=== PATIENT | female | born 1985 | race Hispanic/Latino ===

== ENCOUNTER 2017-01-31 10:49 | Emergency (ER) | payer OTHER | END 2017-01-31 11:33 | disposition home or self-care (01) | LOC: ERS 10:49 | DX: B34.9 Viral infection, unspecified (principal); F32.9 Major depressive disorder, single episode, unspecified | CPT/HCPCS: 87081; 87430; 99283 ==

== ENCOUNTER 2017-03-30 10:47 | Outpatient (CLI) | payer OTHER ==
--- NOTE | 2017-03-30 11:53 | ULT ---
RIGHT UPPER QUADRANT ULTRASOUND: History: Elevated LFTs. FINDINGS: The liver demonstrates increased echogenicity consistent with fatty infiltration. No focal mass or in trahepatic ductal dilatation is seen. No gallstones, gallbladder wall thickening or pericholecystic f luid is identified. The common duct measures 4 mm in diameter. The right kidney is normal. The pancre as is not well visualized due to overlying bowel gas. No free fluid is seen in the large or small bow el. IMPRESSION: 1. Fatty liver. 2. No evidence of cholelithiasis. POS: [facility]
== END 2017-03-30 10:48 | disposition home or self-care (01) ==
LOC: ULT 10:47
PROVIDERS: ATTEND Family Medicine
DX: R79.89 Other specified abnormal findings of blood chemistry (principal); K76.0 Fatty (change of) liver, not elsewhere classified
CPT/HCPCS: 76705

== ENCOUNTER 2017-07-25 16:00 | Inpatient (IN) | payer OTHER ==
--- NOTE | 2017-07-26 00:13 | HP ---
DATE OF ADMISSION: 07/26/2017 positive high risk HPV, status post LEEP, desiring definitive surgical management with dysmenor raza and menorrhagia, laparoscopic hysterectomy with bilateral salpingectomy. HISTORY OF PRESENT ILLNESS: Ms. Kuhn is a 31-year-old 5, para 4, AB 1, x4, who has a history of dysplasia. She was noted to have low grade AN on a Pap, who underwent a LEEP at the [facility] which showed extensive endocervical gland involving severe dysplasia. 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 She was referred for further evaluation. On discussing this with the patient, the need for persistent s urveillance because of the HPV was discussed with the patient. The patient also discussed her dysmen orrhea and menorrhagia. She does not desire future childbearing. She desires more definitive manage ment of her dysplasia. OB AND REHABILITATION LIAISON HISTORY: As noted. PAST MEDICAL HISTORY: Previous discharge of fatty liver, but with normal LFTs recently. PAST SURGICAL HISTORY: LEEP. ALLERGIES: None. MEDICATIONS: None. SOCIAL HISTORY: Denies tobacco or alcohol use currently. The patient is a former smoker. FAMILY HISTORY: Noncontributory. REVIEW OF SYSTEMS: Noncontributory. PHYSICAL EXAMINATION: GENERAL: Female. VITAL SIGNS: Height 5 feet 2 inches, weight 209, BMI 38, blood pressure 118/76. HEENT: Within normal limits. LUNGS: Clear to auscultation bilaterally. HEART: Regular rate and rhythm. BREASTS: Without masses bilaterally. ABDOMEN: Soft, nontender, no rebound or guarding. PELVIC: Vulva without lesions. Vagina without discharge. Cervix is parous, is well healed, status post LEEP in April. Uterus is anteverted, 6-8 week size. Adnexa, no masses bilaterally. EXTREMITIES: Without clubbing, cyanosis or edema. 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 PLAN: Laparoscopic hysterectomy with da Ivana and bilateral salpingectomy. We will administer appro priate antibiotic and DVT prophylaxis.
[2017-07-26] MEDS ORDERED: CEFAZOLIN/Water 2 GM/20 ML SYRINGE ONE (08:35)
[2017-07-26] MEDS ORDERED: CEFAZOLIN 1 GM VIAL ONE (08:35)
[2017-07-26] MEDS ORDERED: Midazolam HCl 2 mg/2 ml Vial ONE ×2 (09:07→09:49)
[2017-07-26] MEDS ORDERED: Bupivacaine HCl 0.5%/Epinephrine 1:200,000/PF 30 ml Vial ONE (09:42)
[2017-07-26] MEDS ORDERED: Fentanyl 250 MCG/5 ML VIAL ONE (09:49)
[2017-07-26] MEDS ORDERED: SUGAMMADEX SODIUM 200 MG/2 ML VIAL ONE (09:49)
[2017-07-26] MEDS ORDERED: Ropivacaine HCl/PF 750 ML in Premix Bag 1 BAG NERVE BLCK SCH (10:00)
[2017-07-26] MEDS ORDERED: Fentanyl 100 MCG/2 ML VIAL ONE (11:50)
--- NOTE | 2017-07-26 12:01 | OP ---
DATE OF PROCEDURE: 07/26/2017 PREOPERATIVE DIAGNOSES: Recurrent dysplasia with persistent positive for high risk HPV with dysmenor raza and menorrhagia. POSTOPERATIVE DIAGNOSES: Recurrent dysplasia with persistent positive for high risk HPV with dysmeno rrhea and menorrhagia. PROCEDURE: Total laparoscopic hysterectomy, bilateral salpingectomy, da Ivana robot. SURGEON: Hermelindo Hayes M.D. MOTION PICTURE COMMENTATOR: Coretta Layton D.O. ANESTHESIA: Will ____, JOB SUPERINTENDENT, General endotracheal. ESTIMATED BLOOD LOSS: 100 mL. COMPLICATIONS: None. DRAINS: Carolina to gravity. SPECIMENS REMOVED: Uterus and bilateral tubes. OPERATIVE FINDINGS: 1. Approximately 6-week sized uterus. 2. Normal appearing tubes and ovaries bilaterally. 3. Hemostasis with clear urine. Counts correct at the end of the procedure. DISPOSITION: Recovery room in good condition. DESCRIPTION OF OPERATIVE PROCEDURE: After obtaining proper informed consent, the patient was taken t o the operating room where general endotracheal anesthesia achieved. The abdomen was prepped and lindsay ped in dorsal lithotomy position in Hung stirrups. Weighted speculum placed in vagina, cervix ident ified, grasped with tooth tenaculum, sounded to 8 cm obturator, 4 cm vaginal clinical reimbursement specialist, EDUARDO manipul ator was placed without difficulty. The Carolina catheter placed with clear urine. Reliability Manager changed hi s gloves and turned his attention to the abdominal portion of procedure. Five mL of Marcaine injecte d at the superior aspect of the umbilicus and a 12 mm skin incision made, ____ placed in the abdomina l cavity. Insufflation carried out with carbon dioxide to a max pressure of 15, volume approximately 3.5 liters. A 12 mm trocar was then placed. Confirmed entry into the peritoneal cavity to underlyi ng viscera. The patient placed in steep Trendelenburg and right and left lateral da Ivana ob gyn physician assistant ports were placed as well as a human ob gyn physician assistant port, a right upper quadrant 11 mm. The da Ivana robo t was docked with a 4-0 Monocryl and Dermabond. The da Ivana robot was docked and a monopolar scisso r was placed in the right hand and bipolar forceps in the left. Distal left fallopian tube was eleva celsa, mesosalpinx coagulated and transected up to the level of the uterus where it was amputated and r emoved out the ob gyn physician assistant port. The utero-ovarian ligament broad and round were then coagulated and t ransected, carried down to the level of the internal cervical os. At this level the peritoneum poste riorly was opened up and identify the ureter and letting it fall lateral, anterior the vesicouterine peritoneum was incised sharply and dissected off the lower segment, cervix and upper vagina. This wa s carried all the way over to the patient's right. Skeletonization of the uterine vessels carried ou t. These were coagulated and transected. Attention was turned to the right where the identical proc edure was carried out including removing the fallopian tube, coagulating the mesosalpinx, utero-ovar raciel, broad, round, and down to level of internal cervical os. Again, the peritoneum was opened up an terior and posterior let the ureter fall away incising the peritoneum of the bladder upon the lower u terine segment and cervix. The bladder was noted to be well dissected off the upper vagina. Skeleto nization of the uterine vessels on the patient's right carried out. These were coagulated and transe cted as well. Anteriorly, the vagina was entered at 12 o'clock and extended from 12 to 3 and from 12 to 9 and from 6 to 3 and 6 to 9 amputating the specimen and pulling it into the vagina. Monopolar s cissors were changed out with a BonzerDarg needle team driver. The vaginal cuff was elevated. Suction irrigat ion was carried out to identify small areas of bleeding along it which were rendered hemostatic using the bipolar fenestrated cautery. The vagina was closed using a running continuous 2-0 PDS suture lo ck, the bladder was backfilled to assure that it was away from the operative field. It was not be aw ay from all suture. The cuff was closed in a running continuous manner from right to left and then b ack to right. Further suction irrigation was carried out which revealed good hemostasis. FloSeal wa s applied across the surgical fossa in the pelvis and then the On-Q pump placed into the pelvic fossa for postoperative analgesia. The da Ivana instruments were removed, the da Ivana was undocked. Abd omen desufflated of carbon dioxide. The patient leveled, trocars removed x4. Deep tissue at the umb ilicus reapproximated using 0 Vicryl on a UR-5 needle. Skin reapproximated x4 using 4-0 Monocryl and Dermabond. Specimen removed from the vagina, vagina inspected and noted be dry and intact. The pat ient awaken and taken to recovery room in good condition.
[2017-07-26] MEDS ORDERED: Ondansetron HCl/PF 4 MG/2 ML Vial IVP PRN ×2 (13:08→13:32)
[2017-07-26] MEDS ORDERED: Morphine 4 MG/ML Carpuject SLOW IVP PRN ×2 (13:08→13:32)
[2017-07-26] MEDS ORDERED: Promethazine HCl 25 MG/ML VIAL IM PRN ×2 (13:08→13:32)
[2017-07-26] MEDS ORDERED: Zolpidem Tartrate 5 MG TAB PO PRN (13:08)
[2017-07-26] MEDS ORDERED: Morphine 4 MG/ML VIAL IV PRN ×4 (13:17→15:12)
[2017-07-26] MEDS: Sodium Chloride 0.9% 1,000 ML IV SCH (13:30)
[2017-07-26] MEDS: Acetaminophen 1,000 MG in Premix Bag 1 BAG IVPB SCH (13:30)
[2017-07-26] MEDS ORDERED: Ketorolac Tromethamine 30 MG/ML VIAL IVP SCH (13:32)
[2017-07-26] MEDS ORDERED: Acetaminophen 1,000 MG in Premix Bag 1 BAG IVPB SCH (13:32)
[2017-07-26] MEDS ORDERED: HYDROcodone/Acetaminophen 10/325 mg Tablet PO PRN ×2 (13:32)
[2017-07-26] MEDS ORDERED: Sodium Chloride 0.9% 1,000 ML IV SCH (13:32)
[2017-07-26] MEDS ORDERED: Ondansetron HCl/PF 4 MG/2 ML Vial ONE (13:50)
[2017-07-26] MEDS ORDERED: PROPOFOL 200 MG/20 ML VIAL ONE (13:50)
[2017-07-26] MEDS ORDERED: Ketorolac Tromethamine 30 MG/ML VIAL ONE (13:50)
[2017-07-26] MEDS ORDERED: Lidocaine 1% PF 5 ML VIAL ONE (13:50)
[2017-07-26] MEDS ORDERED: diphenhydrAMINE 50 MG/ML VIAL ONE (15:30)
[2017-07-26] MEDS ORDERED: Morphine 4 MG/ML VIAL ONE (15:30)
[2017-07-26] MEDS: Ketorolac Tromethamine 30 MG/ML VIAL IVP SCH (17:42)
[2017-07-26] MEDS: HYDROcodone/Acetaminophen 10/325 mg Tablet PO PRN (21:26)
[2017-07-26] MEDS: diphenhydrAMINE 50 MG/ML VIAL IVP PRN (21:27)
[2017-07-27] MEDS: Ketorolac Tromethamine 30 MG/ML VIAL IVP SCH ×4 (00:36→11:50)
[2017-07-27] MEDS: diphenhydrAMINE 50 MG/ML VIAL IVP PRN (03:48)
[2017-07-27] MEDS: Sodium Chloride 0.9% 1,000 ML IV SCH ×2 (05:38→05:39)
[2017-07-27] MEDS: Acetaminophen 1,000 MG in Premix Bag 1 BAG IVPB SCH ×5 (05:38→11:50)
[2017-07-27 05:55] LABS: Hemoglobin 10.6 g/dL (12.0-16.0); Mean Corpuscular HGB CONC 31.5 g/dL (32.0-36.0); Mean Corpuscular Hemoglobin 24.4 pg (27.0-31.0); Mean Corpuscular Volume 77.5 fl (81.0-99.0); Mean Platelet Volume 8.6 fL (7.4-10.4); Platelet Count 174 thou/uL (130-400); RBC Distribution Width 16.2 % (11.5-14.5); Red Blood Cell (RBC) Count 4.33 mill/uL (4.20-5.40); White Blood Cell (WBC) Count 6.7 thou/uL (4.8-10.8)
[2017-07-27] MEDS: HYDROcodone/Acetaminophen 10/325 mg Tablet PO PRN ×4 (06:34→13:56)
[2017-07-27] MEDS ORDERED: Hydrochlorothiazide 25 MG TAB PO SCH (09:00)
[2017-07-27] MEDS ORDERED: diphenhydrAMINE 25 MG CAP PO PRN (11:25)
[2017-07-27 12:22] VITALS: BP 123/95; TEMP 98.3
--- NOTE | 2017-07-27 13:43 | DIS ---
DATE OF ADMISSION: 07/26/2017 DATE OF DISCHARGE: 07/27/2017 HOSPITAL COURSE: The patient is resting comfortably. She has mild itching secondary to a reaction t o MORPHINE. Hematocrit is 33.6% this morning with a normal platelet count and white count of 6.7. VITAL SIGNS: Temperature 98.4, pulse 72, respirations 18, blood pressure 125/58. T-max postoperativ aby is 98.4. I's and O's, the patient has voided more than 1200 mL. She is taking p.o. well and rep orts no nausea, vomiting. PHYSICAL EXAMINATION: LUNGS: Clear to auscultation bilaterally. HEART: Regular rate and rhythm. ABDOMEN: Soft and nontender. Trocars dry x4. ON-Q infusing well. Perineum dry. EXTREMITIES: Without clubbing, cyanosis or edema. Pathology pending. IMPRESSION: The patient is doing well status post TLH with a salpingectomy. PLAN: Discharge home. The patient to continue with ON-Q pump and with [place] as prescribed at preope rative visit. Follow up at [facility] [place] in 4 weeks.
== END 2017-07-27 14:13 | disposition home or self-care (01) | DRG 743 ==
LOC: SURG A 07-26 07:55 → 3SE 07-26 13:11
PROVIDERS: ADMIT Obstetrics & Gynecology; ATTEND Obstetrics & Gynecology
PROC: 0UT9FZZ Resection of Uterus, Via Natural or Artificial Opening With Percutaneous Endoscopic Assistance (ICD-10-PCS; principal; 2017-07-26)
PROC: 0UT7FZZ Resection of Bilateral Fallopian Tubes, Via Natural or Artificial Opening With Percutaneous Endoscopic Assistance (ICD-10-PCS; 2017-07-26)
PROC: 8E0W4CZ Robotic Assisted Procedure of Trunk Region, Percutaneous Endoscopic Approach (ICD-10-PCS; 2017-07-26)
DX: N87.9 Dysplasia of cervix uteri, unspecified (principal); N94.6 Dysmenorrhea, unspecified; N92.0 Excessive and frequent menstruation with regular cycle; Z01.812 Encounter for preprocedural laboratory examination
CPT/HCPCS: 36415; 84703; 85027; 86850; 86900; 86901; 88307; J0131; J0670; J0690; J1200; J1885; J2001; J2250; J2270; J2405; J2704; J2795; J3010

== ENCOUNTER 2017-07-25 16:11 | Outpatient (CLI) | payer OTHER ==
[2017-07-25 17:14] LABS: Hemoglobin 11.7 g/dL (12.0-16.0); Mean Corpuscular HGB CONC 32.7 g/dL (32.0-36.0); Mean Corpuscular Hemoglobin 24.9 pg (27.0-31.0); Mean Corpuscular Volume 76.2 fl (81.0-99.0); Mean Platelet Volume 8.2 fL (7.4-10.4); Platelet Count 234 thou/uL (130-400); RBC Distribution Width 16.1 % (11.5-14.5); Red Blood Cell (RBC) Count 4.67 mill/uL (4.20-5.40); White Blood Cell (WBC) Count 7.8 thou/uL (4.8-10.8)
[2017-07-25 17:25] LABS: BHCG - Serum Negative (NEGATIVE); Pregs Control Background? CLEAR/WHITE (CLR/WHITE); Pregs Control Bar Appear? YES (CONTROL BAR)
== END 2017-07-25 16:12 | disposition home or self-care (01) ==
LOC: LABBT 16:11
PROVIDERS: ATTEND Obstetrics & Gynecology
DX: Z01.812 Encounter for preprocedural laboratory examination (principal); N87.9 Dysplasia of cervix uteri, unspecified
CPT/HCPCS: 84703; 85027; 86850; 86900; 86901

== ENCOUNTER 2018-07-10 13:22 | Emergency (ER) | payer OTHER, SELFPAY ==
[2018-07-10] MEDS ORDERED: Proparacaine 0.5% Opth 15 ML BOT ONE (15:18)
[2018-07-10] MEDS ORDERED: Fluorescein Opthalmic Strip ONE (15:18)
== END 2018-07-10 16:54 | disposition home or self-care (01) ==
LOC: ERS 13:22
DX: H53.8 Other visual disturbances (principal); H57.13 Ocular pain, bilateral; F32.9 Major depressive disorder, single episode, unspecified
CPT/HCPCS: 99283

== ENCOUNTER 2018-10-12 10:17 | Emergency (ER) | payer MEDICAID, OTHER | END 2018-10-12 12:49 | disposition home or self-care (01) | LOC: ERS 10:17 | DX: H53.8 Other visual disturbances (principal); F32.9 Major depressive disorder, single episode, unspecified ==

== ENCOUNTER 2018-10-27 15:28 | Emergency (ER) | payer OTHER ==
[~2018-10-27 15:28] MED LIST: ISOVUE-370 76%-LOCM 1 ML ONE
[2018-10-27 15:53] LABS: Bilirubin Negative (Negative); Blood, Urine Trace (Negative); Clarity Turbid (Clear); Glucose, Urine (Dipstick) Normal (Negative); Leukocyte Negative Leu/uL (Negative); Nitrite Negative (Negative); Protein, Urine (Dipstick) 50 mg/dL (Neg-Trace); Urobilinogen Normal mg/dL (Less than 2); WBC/HPF 0-3 HPF (0-3)
[2018-10-27 15:54] LABS: Pregnancy Test - Urine (BHCG) Negative (Negative)
[2018-10-27 15:55] LABS: Pregu Control Background? CLEAR/WHITE (CLR/WHITE); Pregu Control Bar Appear? YES (CONTROL BAR); Specific Gravity 1.023 (1.002-1.036)
[2018-10-27 16:00] LABS: #Eosinphils 0.1 thou/uL (0.0-0.7); #Lymphocytes 1.3 thou/uL (1.20-3.40); #Monocytes 0.9 thou/uL (0.11-0.59); #Neutrophils 12.8 thou/uL (1.40-6.50); %Basophils 0.2 % (0.0-1.0); %Eosinophils 0.4 % (0.0-10.0); %Lymphocytes 8.9 % (21.0-51.0); %Monocytes 6.2 % (0.0-10.0); %Neutrophils 84.4 % (42.0-75.0); Hemoglobin 15.1 g/dL (12.0-16.0); Mean Corpuscular HGB CONC 35.5 g/dL (32.0-36.0); Mean Corpuscular Hemoglobin 30.7 pg (27.0-31.0); Mean Corpuscular Volume 86.4 fL (78.0-98.0); Mean Platelet Volume 7.4 fL (7.4-10.4); Platelet Count 243 thou/uL (130-400); RBC Distribution Width 11.7 % (11.5-14.5); Red Blood Cell (RBC) Count 4.91 mill/uL (4.20-5.40); White Blood Cell (WBC) Count 15.1 thou/uL (4.8-10.8)
[2018-10-27 16:04] LABS: Bacteria/HPF 2+ HPF (None Seen)
[2018-10-27 16:19] LABS: ALT (SGPT) 244 U/L (8-55); AST (SGOT) 187 U/L (5-34); Alkaline Phosphatase 114 U/L (40-150); Anion Gap 17 mmol/L (10-20); BUN (Urea Nitrogen) 9 mg/dL (7.0-18.7); Bilirubin, Total 0.8 mg/dL (0.2-1.2); Calc. Creatinine Clearance 0 mL/min (70-130); Calcium 9.8 mg/dL (7.8-10.44); Carbon Dioxide 18 mmol/L (22-29); Chloride 106 mmol/L (98-107); Estimated GFR-MDRD Greater than 90; Globulin 3.2 g/dL (2.4-3.5); Glucose 129 mg/dL (70-105); Lipase 34 U/L (8-78); Potassium 3.5 mmol/L (3.5-5.1); Protein, Total 8.2 g/dL (6.0-8.3); Sodium 137 mmol/L (136-145)
[2018-10-27] MEDS ORDERED: Ondansetron ODT 4 MG TAB ONE (17:18)
[2018-10-27] MEDS ORDERED: Morphine 4 MG/ML VIAL ONE (19:13)
--- NOTE | 2018-10-27 19:39 | CT ---
CT ABDOMEN AND PELVIS WITH IV CONTRAST: 10/27/18 HISTORY: Abdominal pain. FINDINGS: The lung bases are clear. No calcified gallstones are seen. The spleen, pancreas, adrenal glands, and kidneys are normal. The liver demonstrates decreased attenuation compared to the spleen consistent w ith fatty infiltration. No free air or lymphadenopathy is seen in the abdomen or pelvis. A normal appearing appendix is pres ent. A normal appearing appendix is seen. There is a small amount of free fluid in the pelvis. The p atient is post hysterectomy. There is mild colonic diverticulosis. The abdominal aorta is of normal c aliber. There are mild degenerative changes in the spine. IMPRESSION: 1. Fatty liver. 2. Mild colonic diverticulosis. POS: [facility]
--- NOTE | 2018-10-27 20:59 | ULT ---
RIGHT UPPER QUADRANT ULTRASOUND: 10/27/18 HISTORY: Right upper quadrant pain. FINDINGS: The liver demonstrates increased echogenicity consistent with fatty infiltration. No focal mass or in trahepatic ductal dilatation is seen. No gallstones, gallbladder wall thickening or pericholecystic f luid is identified. The common duct measures 5 mm in diameter. No free fluid is seen in Mejía's pouch. The right kidney is normal. The pancreas is not well visualized due to overlying bowel gas. IMPRESSION: 1. Fatty liver. 2. No evidence of cholelithiasis POS: [facility]
== END 2018-10-27 20:00 | disposition home or self-care (01) ==
LOC: ERS 15:28
DX: M65.4 Radial styloid tenosynovitis [de Quervain] (principal)
CPT/HCPCS: 36415; 74177; 76705; 80053; 81003; 81015; 81025; 83690; 85025; 96360; 96374; J2270; Q0162; Q9966

== ENCOUNTER 2018-11-08 09:07 | Emergency (ER) | payer OTHER | END 2018-11-08 09:58 | disposition home or self-care (01) | LOC: ERS 09:07 | DX: B37.3 Candidiasis of vulva and vagina (principal) | CPT/HCPCS: 99283 ==

== ENCOUNTER 2020-07-29 14:09 | Emergency (ER) | payer OTHER | END 2020-07-29 15:17 | disposition home or self-care (01) | LOC: ERS 14:09 | DX: L73.1 Pseudofolliculitis barbae (principal); L02.214 Cutaneous abscess of groin; I10 Essential (primary) hypertension | CPT/HCPCS: 99282 ==

== ENCOUNTER → 2021-06-10 | Emergency (ER) | payer OTHER ==
[~2021-06-10] MED LIST changes: -ISOVUE-370 76%-LOCM 1 ML ONE; +Ketorolac Tromethamine 30 MG/ML VIAL ONE
== END ==
LOC: ERS 12:42
DX: S93.402A Sprain of unspecified ligament of left ankle, initial encounter (principal); I10 Essential (primary) hypertension; X50.1XXA Overexertion from prolonged static or awkward postures, initial encounter; Y93.01 Activity, walking, marching and hiking; Y92.009 Unspecified place in unspecified non-institutional (private) residence as the place of occurrence of the external cause
CPT/HCPCS: 96372; J1885